=== PATIENT | male | born 1970 | race Hispanic/Latino ===

== ENCOUNTER 2017-04-25 09:50 | Emergency (ER) | payer MEDICARE, OTHER ==
[2017-04-25 10:09] LABS: BASOPHILS % (AUTO) 0.5 % (0.0-5.0); EOSINOPHILS % (AUTO) 3.3 % (0.0-8.0); HEMATOCRIT 48.9 % (42-54); LYMPHOCYTES % (AUTO) 20.5 % (21.0-51.0); MEAN CORPUSCULAR HEMOGLOBIN 29.9 pg (27.0-33.0); MEAN CORPUSCULAR HGB CONC 33.3 g/dL (32.0-36.0); MEAN CORPUSCULAR VOLUME 89.8 fL (79-99); MONOCYTES % (AUTO) 8.9 % (3.0-13.0); NEUTROPHILS % (AUTO) 66.8 % (40.0-77.0); PLATELET COUNT (AUTO) 235 K/uL (130-400); RED BLOOD CELL COUNT(AUTO) 5.45 MIL/uL (4.50-6.20); RED CELL DISTRIBUTION WIDTH 13.9 % (11.0-15.5)
[2017-04-25] MEDS ORDERED: DICYCLOMINE HCL 20 MG TAB ONE (10:09)
[2017-04-25] MEDS ORDERED: KETOROLAC TROMETHAMINE 30MG/ML ONE (10:09)
[2017-04-25 10:21] LABS: CREATININE 1.1 mg/dL (0.5-1.5); POTASSIUM 4.2 mmol/L (3.5-5.1)
[2017-04-25 10:26] LABS: ALBUMIN 3.9 g/dL (3.5-5.0); BILIRUBIN,TOTAL 0.3 mg/dL (0.2-1.0); TOTAL PROTEIN, SERUM 7.5 g/dL (6.0-8.3)
[2017-04-25 10:50] LABS: APPEARANCE,URINE Clear (CLEAR); BILIRUBIN,URINE Negative (NEGATIVE); COLOR,URINE Yellow (YELLOW); GLUCOSE, URINE (UA) Negative (NEGATIVE); KETONES,URINE Negative (NEGATIVE); LEUKOCYTE ESTERASE ,URINE Negative (NEGATIVE); NITRATE,URINE Negative (NEGATIVE); OCCULT BLOOD,URINE Negative (NEGATIVE); PH,URINE 5.5 (5.0-8.0); PROTEIN,URINE Negative (NEGATIVE); UROBILINOGEN,URINE 0.2 mg/dL (0.2-1.0)
[2017-04-25] MEDS ORDERED: IPRATROPIUM/ALBUTEROL SULFATE 3 ML SOLUTION IH ONE (12:13)
[2017-04-25] MEDS ORDERED: ACETAMINOPHEN-CODEINE 300/30MG TAB ONE (12:28)
[2017-04-25] MEDS ORDERED: IOPAMIDOL-370 100 ML VIAL IV ONE (12:30)
== END 2017-04-25 15:44 | disposition home or self-care (01) ==
LOC: EDH 09:50
DX: M94.0 Chondrocostal junction syndrome [Tietze] (principal); I10 Essential (primary) hypertension; F43.10 Post-traumatic stress disorder, unspecified
CPT/HCPCS: 36415; 71046; 71275; 76705; 80053; 81003; 83690; 85025; 87804 ×2; 93005; 94640; 96374; 99285; J1885; Q9967

== ENCOUNTER 2018-12-25 06:36 | Emergency (ER) | payer MEDICARE, OTHER ==
[2018-12-25 07:34] LABS: APPEARANCE,URINE CLEAR (CLEAR); BILIRUBIN,URINE NEGATIVE (NEGATIVE); COLOR,URINE YELLOW (YELLOW); GLUCOSE, URINE (UA) NEGATIVE (NEGATIVE); KETONES,URINE NEGATIVE (NEGATIVE); LEUKOCYTE ESTERASE ,URINE NEGATIVE (NEGATIVE); NITRATE,URINE NEGATIVE (NEGATIVE); OCCULT BLOOD,URINE NEGATIVE (NEGATIVE); PROTEIN,URINE NEGATIVE (NEGATIVE); UROBILINOGEN,URINE 0.2 mg/dL (0.2-1.0)
[2018-12-25] MEDS ORDERED: SODIUM CHLORIDE 0.9% 1000ML 1,000 ML IV ONE (07:42)
[2018-12-25] MEDS ORDERED: ONDANSETRON HCL 4 MG/2 ML VIAL ONE (07:42)
[2018-12-25] MEDS ORDERED: KETOROLAC TROMETHAMINE 30MG/ML ONE (07:43)
[2018-12-25] MEDS ORDERED: MORPHINE SULFATE 4 MG/1ML SYG ONE (07:43)
[2018-12-25 07:46] LABS: BASOPHILS % (AUTO) 0.1 % (0.0-5.0); EOSINOPHILS % (AUTO) 1.3 % (0.0-8.0); HEMATOCRIT 48.7 % (42-54); LYMPHOCYTES % (AUTO) 7.9 % (21.0-51.0); MEAN CORPUSCULAR HEMOGLOBIN 30.7 pg (27.0-33.0); MEAN CORPUSCULAR VOLUME 90.1 fL (79-99); MONOCYTES % (AUTO) 4.8 % (3.0-13.0); NEUTROPHILS % (AUTO) 85.9 % (40.0-77.0); PLATELET COUNT (AUTO) 201 K/uL (130-400); RED BLOOD CELL COUNT(AUTO) 5.41 MIL/uL (4.50-6.20); RED CELL DISTRIBUTION WIDTH 13.9 % (11.0-15.5); WHITE BLOOD COUNT (AUTO) 9.6 K/uL (4.8-10.8)
[2018-12-25 07:54] LABS: CREATININE 1.2 mg/dL (0.5-1.5); POTASSIUM 4.1 mmol/L (3.5-5.1)
== END 2018-12-25 09:24 | disposition home or self-care (01) ==
LOC: EDH 06:36
DX: N13.6 Pyonephrosis (principal); I10 Essential (primary) hypertension
CPT/HCPCS: 36415; 74176; 80048; 81003; 85025; 96374; 96375; 99285; J1885; J2270; J2405; J7030

== ENCOUNTER 2020-08-11 22:35 | Emergency (ER) | payer OTHER ==
[2020-08-11] MEDS ORDERED: FLUORESCEIN SODIUM 1 STRIP STRIP ONE (23:00)
[2020-08-11] MEDS ORDERED: TETRACAINE HCL 0.5% 4 ML OPHTH SOLN ONE (23:00)
[2020-08-11] MEDS ORDERED: ERYTHROMYCIN BASE 0.5% OPHTH OINT 1 GM TUBE ONE (23:33)
== END 2020-08-11 23:41 | disposition home or self-care (01) ==
LOC: EDH 22:35
DX: S05.02XA Injury of conjunctiva and corneal abrasion without foreign body, left eye, initial encounter (principal); H10.89 Other conjunctivitis; J98.4 Other disorders of lung; I10 Essential (primary) hypertension; F43.10 Post-traumatic stress disorder, unspecified; Z98.890 Other specified postprocedural states; X58.XXXA Exposure to other specified factors, initial encounter; Y93.89 Activity, other specified; Y92.89 Other specified places as the place of occurrence of the external cause; Y99.8 Other external cause status

== ENCOUNTER 2020-10-18 13:23 | Emergency (ER) | payer OTHER ==
[~2020-10-18] VITALS: Ht 180.3 cm; Wt 129.3 kg
[2020-10-18 13:25] VITALS: BP 123/78
[2020-10-18 17:24] LABS: BASOPHILS % (AUTO) 0.3 % (0.0-5.0); EOSINOPHILS % (AUTO) 1.3 % (0.0-8.0); HEMATOCRIT 51.2 % (42-54); LYMPHOCYTES % (AUTO) 11.8 % (21.0-51.0); MEAN CORPUSCULAR HEMOGLOBIN 29.8 pg (27.0-33.0); MEAN CORPUSCULAR HGB CONC 32.2 g/dL (32.0-36.0); MEAN CORPUSCULAR VOLUME 92.4 fL (79-99); MONOCYTES % (AUTO) 7.7 % (3.0-13.0); NEUTROPHILS % (AUTO) 78.5 % (40.0-77.0); PLATELET COUNT (AUTO) 180 K/uL (130-400); RED BLOOD CELL COUNT(AUTO) 5.54 MIL/uL (4.50-6.20); RED CELL DISTRIBUTION WIDTH 14.5 % (11.0-15.5); WHITE BLOOD COUNT (AUTO) 11.6 K/uL (4.8-10.8)
[2020-10-18 17:38] LABS: CREATININE 1.4 mg/dL (0.5-1.5); POTASSIUM 4.8 mmol/L (3.5-5.1)
[2020-10-18 17:42] LABS: BILIRUBIN,TOTAL 0.6 mg/dL (0.2-1.0); TOTAL PROTEIN, SERUM 7.9 g/dL (6.0-8.3)
[2020-10-18 17:54] VITALS: BP 132/7
[2020-10-18] MEDS ORDERED: LACTATED RINGERS 1000ML 1,000 ML IV ONE ×2 (18:45→19:03)
[2020-10-18] MEDS ORDERED: KETOROLAC 15MG/ML VIAL (15MG/ML) ONE (18:45)
[2020-10-18] MEDS ORDERED: KETOROLAC 15MG/ML VIAL (15MG/ML) IV ONE (18:45)
[2020-10-18 19:25] VITALS: BP 137/80
[2020-10-18] MEDS ORDERED: ONDA4TAB4 PO (19:54)
[2020-10-18] MEDS ORDERED: LEVO750T46 PO (19:54)
[2020-10-18] MEDS ORDERED: FAMO-136 PO (19:55)
== END 2020-10-18 20:19 | disposition home or self-care (01) ==
LOC: EDH 15:02
DX: R19.7 Diarrhea, unspecified (principal); G89.29 Other chronic pain; M54.9 Dorsalgia, unspecified; R05 Cough; Z87.01 Personal history of pneumonia (recurrent); Z87.442 Personal history of urinary calculi
CPT/HCPCS: 36415; 71250; 80053; 82150; 83690; 85025; 96361; 96374; 99284; J1885; J7120

== ENCOUNTER 2021-01-11 16:27 | Emergency (ER) | payer OTHER ==
[~2021-01-11] VITALS: Ht 180.3 cm; Wt 123.8 kg
[~2021-01-11 16:27] MED LIST: FAMO-136 PO; LEVO750T46 PO; ONDA4TAB4 PO
[2021-01-11 16:31] VITALS: BP 134/82
[2021-01-11] MEDS ORDERED: LORAZEPAM 2 MG/ML 1 ML VIAL IVP ONE (17:00)
[2021-01-11] MEDS ORDERED: SOLU-MEDROL 125MG VIAL IVP ONE (17:00)
[2021-01-11 17:12] LABS: BASOPHILS % (AUTO) 0.2 % (0.0-5.0); EOSINOPHILS % (AUTO) 1.9 % (0.0-8.0); HEMATOCRIT 47.2 % (42-54); LYMPHOCYTES % (AUTO) 15.9 % (21.0-51.0); MEAN CORPUSCULAR HEMOGLOBIN 29.4 pg (27.0-33.0); MEAN CORPUSCULAR HGB CONC 32.8 g/dL (32.0-36.0); MEAN CORPUSCULAR VOLUME 89.4 fL (79-99); MONOCYTES % (AUTO) 6.4 % (3.0-13.0); NEUTROPHILS % (AUTO) 75.3 % (40.0-77.0); PLATELET COUNT (AUTO) 199 K/uL (130-400); RED BLOOD CELL COUNT(AUTO) 5.28 MIL/uL (4.50-6.20); RED CELL DISTRIBUTION WIDTH 14.2 % (11.0-15.5); WHITE BLOOD COUNT (AUTO) 8.6 K/uL (4.8-10.8)
[2021-01-11 17:29] LABS: CREATININE 1.1 mg/dL (0.5-1.5)
[2021-01-11 17:33] LABS: ALBUMIN 3.8 g/dL (3.5-5.0); BILIRUBIN,TOTAL 0.4 mg/dL (0.2-1.0); TOTAL PROTEIN, SERUM 7.5 g/dL (6.0-8.3)
[2021-01-11 17:46] LABS: B-TYPE NATRIURETIC PEPTIDE 10 pg/mL (0-100)
[2021-01-11] MEDS ORDERED: CYCL10 PO (18:25)
[2021-01-11] MEDS ORDERED: METH4TAB3 PO (18:25)
[2021-01-11 18:44] VITALS: BP 132/80
== END 2021-01-11 18:33 | disposition home or self-care (01) ==
LOC: EDH 16:27
DX: F41.9 Anxiety disorder, unspecified (principal); F45.8 Other somatoform disorders; M54.2 Cervicalgia; Z79.899 Other long term (current) drug therapy; Z87.442 Personal history of urinary calculi
CPT/HCPCS: 36415; 71045; 80053; 82550; 82948; 83880; 84484; 85025; 93005; 96374; 96375; 99285; J2060; J2930

== ENCOUNTER 2022-05-25 07:13 | Day surgery (SDC) | payer OTHER ==
[2022-05-23 12:56] LABS: BASOPHILS % (AUTO) 0.2 % (0.0-5.0); EOSINOPHILS % (AUTO) 1.9 % (0.0-8.0); HEMATOCRIT 51.8 % (42-54); LYMPHOCYTES % (AUTO) 23.8 % (21.0-51.0); MEAN CORPUSCULAR HEMOGLOBIN 29.6 pg (27.0-33.0); MEAN CORPUSCULAR VOLUME 89.6 fL (79-99); MONOCYTES % (AUTO) 7.8 % (3.0-13.0); NEUTROPHILS % (AUTO) 66.1 % (40.0-77.0); PLATELET COUNT (AUTO) 215 K/uL (130-400); RED BLOOD CELL COUNT(AUTO) 5.78 MIL/uL (4.50-6.20); RED CELL DISTRIBUTION WIDTH 13.9 % (11.0-15.5); WHITE BLOOD COUNT (AUTO) 8.5 K/uL (4.8-10.8)
[2022-05-23 13:03] LABS: CREATININE 1.3 mg/dL (0.5-1.5); POTASSIUM 4.9 mmol/L (3.5-5.1)
[2022-05-24 10:51] VITALS: BP 144/81
[2022-05-25] VITALS (16 sets, daily range): BP systolic 118–145; BP diastolic 54–85
[~2022-05-25] VITALS: Ht 180.3 cm; Wt 125.2 kg
[2022-05-25] MEDS: CEFAZOLIN SODIUM 2 GM VIAL IVPB SCH ×2 (06:00→08:40)
[~2022-05-25 07:13] MED LIST changes: +0.9% NACL 500ML IV.SOLN 500 ML IV SCH; -FAMO-136 PO; -LEVO750T46 PO; +LIDOCAINE HCL 1% 20 ML VIAL ONE; -ONDA4TAB4 PO; +WIXELA IH
[2022-05-25] MEDS ORDERED: BUPIVACAINE/PF 0.5% 10ML VIAL ONE (07:15)
[2022-05-25] MEDS ORDERED: CEFAZOLIN SODIUM 1 GM VIAL ONE (07:29)
[2022-05-25] MEDS ORDERED: 0.9%NACL 1000ML 1,000 ML IV ONE (07:29)
[2022-05-25] MEDS ORDERED: PROPOFOL 10 MG/ML 20ML VIAL IV ONE (08:35)
[2022-05-25] MEDS ORDERED: MIDAZOLAM HCL 1 MG/ML 2ML VIAL ONE ×2 (08:35→08:43)
[2022-05-25] MEDS ORDERED: FENTANYL CITRATE PF 50 MCG/1 ML 2ML VIAL ONE (08:36)
[2022-05-28] MEDS ORDERED: LOPE2 PO (14:36)
[2022-05-28] MEDS ORDERED: ONDA4TAB10 PO (14:36)
[2022-05-28] MEDS ORDERED: BACI1CAP6 PO (14:36)
[2022-05-28] MEDS ORDERED: DICY20TA2 PO (14:36)
== END 2022-05-25 10:40 | disposition home or self-care (01) ==
LOC: DAH 07:13
PROVIDERS: ATTEND Surgery
DX: L72.3 Sebaceous cyst (principal); Z20.822 Contact with and (suspected) exposure to COVID-19; L72.0 Epidermal cyst; I10 Essential (primary) hypertension; J44.9 Chronic obstructive pulmonary disease, unspecified; E66.01 Morbid (severe) obesity due to excess calories; G47.30 Sleep apnea, unspecified; E78.5 Hyperlipidemia, unspecified; Z98.890 Other specified postprocedural states; Z87.891 Personal history of nicotine dependence; Z79.899 Other long term (current) drug therapy; Z79.01 Long term (current) use of anticoagulants; Z68.38 Body mass index [BMI] 38.0-38.9, adult
CPT/HCPCS: 87426; 80048; 85025; 36415; 11404; 82948 ×2; A4663; A4452; J0690; J7030; J3490; J2250 ×2; A4215; A4223; A4222; A4221; J2704; J3010